=== PATIENT | male | born 1960 | race Hispanic/Latino ===

== ENCOUNTER 2018-03-31 10:15 | Day surgery (SDC) | payer MEDICAID ==
[~2018-03-31] VITALS: Ht 180.3 cm; Wt 73.7 kg
[2018-03-31] VITALS (13 sets, daily range): BP systolic 113–138; BP diastolic 60–75
[~2018-03-31 10:15] MED LIST: AMYL1CAP63 PO; OMEP40CA37 PO; SODIUM CHLORIDE 0.9% 1000ML 1,000 ML IV ONE
[2018-03-31] MEDS ORDERED: AMLO5TAB9 PO (11:20)
[2018-03-31] MEDS ORDERED: LISI10TA7 PO (11:20)
[2018-03-31] MEDS ORDERED: HYDR-4068 PO (11:20)
[2018-03-31] MEDS ORDERED: LEVO50TA11 PO (11:20)
[2018-03-31] MEDS ORDERED: METO25TA6 PO (11:20)
[2018-03-31] MEDS ORDERED: TRAM50TA4 PO (11:20)
[2018-03-31] MEDS ORDERED: PROPOFOL 10 MG/ML 20ML VIAL IV ONE ×2 (11:58→12:32)
[2018-03-31] MEDS ORDERED: FENTANYL CITRATE PF 50 MCG/1 ML 2ML VIAL ONE (11:58)
[2018-03-31] MEDS ORDERED: SUCCINYLCHOLINE CHLORIDE 20 MG/ML 10 ML VIAL ONE (11:59)
[2018-03-31] MEDS ORDERED: LEVOFLOXACIN 750 MG/D5W 150 ML 150 ML IV SCH (12:30)
== END 2018-03-31 14:40 | disposition home or self-care (01) ==
LOC: ENDO 10:15 → DAH 10:15 → ENDO 14:40
PROVIDERS: ATTEND Internal Medicine
DX: K86.2 Cyst of pancreas (principal); K31.89 Other diseases of stomach and duodenum; K86.1 Other chronic pancreatitis; I10 Essential (primary) hypertension; E03.9 Hypothyroidism, unspecified; Z98.890 Other specified postprocedural states; Z79.899 Other long term (current) drug therapy
CPT/HCPCS: 36415; 43238; 82150; 82378; A4215; A4606; J0330; J1956; J2704 ×2; J3010; J7030; 43232; 43240

== ENCOUNTER → 2018-04-04 | Outpatient (CLI) | payer MEDICAID ==
[~2018-04-04] MED LIST changes: +AMLO5TAB9 PO; +HYDR-4068 PO; +LEVO50TA11 PO; +LISI10TA7 PO; +METO25TA6 PO; -SODIUM CHLORIDE 0.9% 1000ML 1,000 ML IV ONE; +TRAM50TA4 PO
[2018-04-04 08:37] LABS: BASOPHILS % (AUTO) 0.3 % (0.0-5.0); EOSINOPHILS % (AUTO) 3.5 % (0.0-8.0); HEMATOCRIT 43.1 % (42-54); LYMPHOCYTES % (AUTO) 18.9 % (21.0-51.0); MEAN CORPUSCULAR HEMOGLOBIN 28.8 pg (27.0-33.0); MEAN CORPUSCULAR HGB CONC 32.5 g/dL (32.0-36.0); MEAN CORPUSCULAR VOLUME 88.7 fL (79-99); MONOCYTES % (AUTO) 8.9 % (3.0-13.0); NEUTROPHILS % (AUTO) 68.4 % (40.0-77.0); PLATELET COUNT (AUTO) 185 K/uL (130-400); RED BLOOD CELL COUNT(AUTO) 4.86 MIL/uL (4.50-6.20); RED CELL DISTRIBUTION WIDTH 14.3 % (11.0-15.5); WHITE BLOOD COUNT (AUTO) 8.8 K/uL (4.8-10.8)
[2018-04-04 08:49] LABS: ALBUMIN 3.2 g/dL (3.5-5.0); BILIRUBIN,TOTAL 0.4 mg/dL (0.2-1.0); CREATININE 0.9 mg/dL (0.5-1.5); POTASSIUM 4.8 mmol/L (3.5-5.1)
== END | disposition home or self-care (01) ==
LOC: RAH 04-03 11:08
PROVIDERS: ATTEND Internal Medicine Gastroenterology
DX: R93.3 Abnormal findings on diagnostic imaging of other parts of digestive tract (principal); K86.1 Other chronic pancreatitis; M47.815 Spondylosis without myelopathy or radiculopathy, thoracolumbar region
CPT/HCPCS: 36415; 74021; 80053; 83690; 85025

== ENCOUNTER → 2018-05-12 | Outpatient (CLI) | payer MEDICAID ==
[~2018-05-12] MED LIST changes: +IOHEXOL 350 MG/ML 100ML INFUS..BTL IV ONE
== END | disposition home or self-care (01) ==
LOC: RAH 09:46
PROVIDERS: ATTEND Internal Medicine Gastroenterology
DX: K86.1 Other chronic pancreatitis (principal); M48.07 Spinal stenosis, lumbosacral region; N28.1 Cyst of kidney, acquired
CPT/HCPCS: 74178; Q9967

== ENCOUNTER 2018-08-01 10:40 | Day surgery (SDC) | payer MEDICAID ==
[~2018-08-01] VITALS: Ht 175.3 cm; Wt 72.1 kg
[2018-08-01] VITALS (17 sets, daily range): BP systolic 108–125; BP diastolic 59–79
[~2018-08-01 10:40] MED LIST changes: -HYDR-4068 PO; -IOHEXOL 350 MG/ML 100ML INFUS..BTL IV ONE; +SODIUM CHLORIDE 0.9% 1000ML 1,000 ML IV ONE
[2018-08-01] MEDS ORDERED: IOHEXOL-350 50ML VIAL IV ONE (13:12)
[2018-08-01] MEDS ORDERED: PROPOFOL 10 MG/ML 20ML VIAL IV ONE ×2 (13:15→13:16)
[2018-08-01] MEDS ORDERED: SUCCINYLCHOLINE CHLORIDE 20 MG/ML 10 ML VIAL ONE (13:16)
[2018-08-01] MEDS ORDERED: GLUCAGON 1MG KIT 1 MG ML ONE (13:41)
== END 2018-08-01 16:07 | disposition home or self-care (01) ==
LOC: DAH 10:40 → ENDO 10:40
PROVIDERS: ATTEND Internal Medicine
DX: K86.89 Other specified diseases of pancreas (principal); K86.3 Pseudocyst of pancreas; I10 Essential (primary) hypertension; E03.9 Hypothyroidism, unspecified; Z79.899 Other long term (current) drug therapy; Z79.84 Long term (current) use of oral hypoglycemic drugs; Z88.8 Allergy status to other drugs, medicaments and biological substances; K21.9 Gastro-esophageal reflux disease without esophagitis
CPT/HCPCS: 43274; 74330; A4606; C1769; C2617; J0330; J1610; J2704 ×2; J7030; Q9967

== ENCOUNTER → 2018-08-02 | Outpatient (CLI) | payer MEDICAID ==
[~2018-08-02] MED LIST changes: -SODIUM CHLORIDE 0.9% 1000ML 1,000 ML IV ONE
== END | disposition home or self-care (01) ==
LOC: RAH 09:05
PROVIDERS: ATTEND Internal Medicine
DX: Z46.59 Encounter for fitting and adjustment of other gastrointestinal appliance and device (principal)
CPT/HCPCS: 74018

== ENCOUNTER → 2018-09-04 | Outpatient (CLI) | payer MEDICAID ==
[2018-09-04 12:38] LABS: CREATININE 0.9 mg/dL (0.5-1.5)
== END | disposition home or self-care (01) ==
LOC: LAB 11:19
PROVIDERS: ATTEND Internal Medicine Gastroenterology
DX: R93.3 Abnormal findings on diagnostic imaging of other parts of digestive tract (principal)
CPT/HCPCS: 36415; 82565; 84520

== ENCOUNTER → 2018-09-05 | Outpatient (CLI) | payer MEDICAID ==
[~2018-09-05] MED LIST changes: +IOHEXOL 350 MG/ML 100ML INFUS..BTL IV ONE
== END | disposition home or self-care (01) ==
LOC: OIH 08:31
PROVIDERS: ATTEND Internal Medicine Gastroenterology
DX: K76.0 Fatty (change of) liver, not elsewhere classified (principal); K86.2 Cyst of pancreas; N32.89 Other specified disorders of bladder; R19.09 Other intra-abdominal and pelvic swelling, mass and lump
CPT/HCPCS: 74178; Q9967

== ENCOUNTER 2018-09-19 08:45 | Day surgery (SDC) | payer MEDICAID ==
[~2018-09-19] VITALS: Ht 175.3 cm; Wt 72.6 kg
[2018-09-19] VITALS (18 sets, daily range): BP systolic 111–126; BP diastolic 59–76
[~2018-09-19 08:45] MED LIST changes: -IOHEXOL 350 MG/ML 100ML INFUS..BTL IV ONE; +SODIUM CHLORIDE 0.9% 1000ML 1,000 ML IV ONE
[2018-09-19] MEDS ORDERED: TYL3 PO (10:21)
[2018-09-19] MEDS ORDERED: IOHEXOL-350 50ML VIAL IV ONE (10:32)
[2018-09-19] MEDS ORDERED: SUCCINYLCHOLINE CHLORIDE 20 MG/ML 10 ML VIAL ONE (10:40)
[2018-09-19] MEDS ORDERED: GLYCOPYRROLATE 0.2 MG/ML 5 ML VIAL ONE (11:00)
--- NOTE | 2018-09-19 12:55 | NUR ---
NS 0.9% NS BAG OF 1000 ML STARTED AND GIVEN IN GI RECOVERY., PT AAOX3 IN NO DISTRESS. PATIENT DENIES [place] PAIN OR DISCOMFORT
== END 2018-09-19 13:10 | disposition home or self-care (01) ==
LOC: DAH 08:45 → ENDO 08:45
PROVIDERS: ATTEND Internal Medicine
DX: Z46.59 Encounter for fitting and adjustment of other gastrointestinal appliance and device (principal); K86.89 Other specified diseases of pancreas; Z79.82 Long term (current) use of aspirin
CPT/HCPCS: 43275; 74329; A4606; C1875; J0330; J3490; J7030; Q9967; 74330

== ENCOUNTER → 2018-12-18 | Outpatient (CLI) | payer MEDICAID ==
[~2018-12-18] MED LIST changes: -SODIUM CHLORIDE 0.9% 1000ML 1,000 ML IV ONE; +TYL3 PO
== END | disposition home or self-care (01) ==
LOC: RAH 08:43
PROVIDERS: ATTEND Family Medicine
DX: K86.3 Pseudocyst of pancreas (principal); K76.0 Fatty (change of) liver, not elsewhere classified
CPT/HCPCS: 76700

== ENCOUNTER → 2019-01-02 | Outpatient (CLI) | payer MEDICAID ==
[~2019-01-02] MED LIST changes: +OMEP40CA13 PO; -OMEP40CA37 PO
== END | disposition home or self-care (01) ==
LOC: LAB 07:45
PROVIDERS: ATTEND Internal Medicine Gastroenterology
DX: K86.2 Cyst of pancreas (principal)
CPT/HCPCS: 36415; 82565; 84520

== ENCOUNTER → 2019-01-22 | Outpatient (CLI) | payer MEDICAID ==
[~2019-01-22] MED LIST changes: +IOHEXOL-350 75 ML VIAL IV ONE
== END | disposition home or self-care (01) ==
LOC: RAH 07:37
PROVIDERS: ATTEND Internal Medicine Gastroenterology
DX: K86.2 Cyst of pancreas (principal); K76.0 Fatty (change of) liver, not elsewhere classified; K86.1 Other chronic pancreatitis; I70.0 Atherosclerosis of aorta
CPT/HCPCS: 74170; Q9967

== ENCOUNTER → 2019-08-09 | Outpatient (CLI) | payer MEDICAID ==
[~2019-08-09] MED LIST changes: -IOHEXOL-350 75 ML VIAL IV ONE
[2019-08-09 10:01] LABS: BASOPHILS % (AUTO) 0.7 % (0.0-5.0); EOSINOPHILS % (AUTO) 4.9 % (0.0-8.0); HEMATOCRIT 41.8 % (42-54); LYMPHOCYTES % (AUTO) 37.4 % (21.0-51.0); MEAN CORPUSCULAR HEMOGLOBIN 29.1 pg (27.0-33.0); MONOCYTES % (AUTO) 7.9 % (3.0-13.0); NEUTROPHILS % (AUTO) 48.4 % (40.0-77.0); PLATELET COUNT (AUTO) 184 K/uL (130-400); RED BLOOD CELL COUNT(AUTO) 4.75 MIL/uL (4.50-6.20); RED CELL DISTRIBUTION WIDTH 13.3 % (11.0-15.5); WHITE BLOOD COUNT (AUTO) 7.3 K/uL (4.8-10.8)
[2019-08-09 10:11] LABS: INR 0.92 (0.85-1.15); PARTIAL THROMBOPLASTIN TIME 24.9 SEC (26.3-35.5)
[2019-08-09 10:15] LABS: ALBUMIN 3.5 g/dL (3.5-5.0); BILIRUBIN,TOTAL 0.2 mg/dL (0.2-1.0); CREATININE 0.9 mg/dL (0.5-1.5); POTASSIUM 3.7 mmol/L (3.5-5.1); TOTAL PROTEIN, SERUM 7.4 g/dL (6.0-8.3)
== END | disposition home or self-care (01) ==
LOC: LAB 08:07
PROVIDERS: ATTEND Surgery
DX: K86.89 Other specified diseases of pancreas (principal)
CPT/HCPCS: 36415; 80053; 82105; 82378; 85025; 85610; 85730; 86316

== ENCOUNTER → 2019-08-24 | Outpatient (CLI) | payer MEDICAID ==
[~2019-08-24] MED LIST changes: +IOHEXOL 350 MG/ML 100ML INFUS..BTL IV ONE
== END | disposition home or self-care (01) ==
LOC: RAH 10:11
PROVIDERS: ATTEND Surgery
DX: K86.3 Pseudocyst of pancreas (principal); M47.816 Spondylosis without myelopathy or radiculopathy, lumbar region
CPT/HCPCS: 74178; Q9967

== ENCOUNTER 2019-09-02 | Emergency (ER) | payer MEDICAID | END 2019-09-03 01:38 | disposition home or self-care (01) | DX: R07.89 Other chest pain (principal); R31.9 Hematuria, unspecified; R10.9 Unspecified abdominal pain; E03.9 Hypothyroidism, unspecified; I10 Essential (primary) hypertension; Z88.2 Allergy status to sulfonamides; Z88.6 Allergy status to analgesic agent; Z88.8 Allergy status to other drugs, medicaments and biological substances; Z79.899 Other long term (current) drug therapy ==

== ENCOUNTER → 2020-01-04 | Outpatient (CLI) | payer MEDICAID ==
[~2020-01-04] MED LIST changes: +AMLO-257 PO; -AMLO5TAB9 PO; -IOHEXOL 350 MG/ML 100ML INFUS..BTL IV ONE
== END | disposition home or self-care (01) ==
LOC: RAH 09:45
PROVIDERS: ATTEND Family Medicine
DX: E03.9 Hypothyroidism, unspecified (principal)
CPT/HCPCS: 76536

== ENCOUNTER 2020-12-22 19:44 | Emergency (ER) | payer MEDICAID ==
[~2020-12-22] VITALS: Ht 175.3 cm; Wt 75.3 kg
[~2020-12-22 19:44] MED LIST changes: +LISI10TA24 PO; -LISI10TA7 PO; -OMEP40CA13 PO; +OMEP40CA21 PO
[2020-12-22 20:17] VITALS: BP 132/74
[2020-12-22] MEDS ORDERED: ONDANSETRON 4MG INJ IVP ONE (20:30)
[2020-12-22] MEDS ORDERED: 0.9%NACL 1000ML 1,000 ML IV ONE (20:30)
[2020-12-22] MEDS ORDERED: MORPHINE 4 MG SYG IVP ONE (20:30)
[2020-12-22] MEDS ORDERED: FAMOTIDINE 20MG VIAL IV ONE ×2 (20:30→22:40)
[2020-12-22 20:34] LABS: BASOPHILS % (AUTO) 0.5 % (0.0-5.0); EOSINOPHILS % (AUTO) 2.4 % (0.0-8.0); HEMATOCRIT 43.3 % (42-54); LYMPHOCYTES % (AUTO) 25.6 % (21.0-51.0); MEAN CORPUSCULAR HEMOGLOBIN 28.8 pg (27.0-33.0); MEAN CORPUSCULAR VOLUME 87.1 fL (79-99); MONOCYTES % (AUTO) 9.9 % (3.0-13.0); NEUTROPHILS % (AUTO) 61.1 % (40.0-77.0); PLATELET COUNT (AUTO) 162 K/uL (130-400); RED BLOOD CELL COUNT(AUTO) 4.97 MIL/uL (4.50-6.20); RED CELL DISTRIBUTION WIDTH 13.4 % (11.0-15.5); WHITE BLOOD COUNT (AUTO) 8.3 K/uL (4.8-10.8)
[2020-12-22] MEDS ORDERED: IOHEXOL-350 75 ML VIAL IV ONE (20:46)
[2020-12-22 20:49] LABS: POTASSIUM 3.7 mmol/L (3.5-5.1)
[2020-12-22 20:51] LABS: ALBUMIN 3.5 g/dL (3.5-5.0); BILIRUBIN,TOTAL 0.2 mg/dL (0.2-1.0); TOTAL PROTEIN, SERUM 7.9 g/dL (6.0-8.3)
[2020-12-22 21:25] LABS: APPEARANCE,URINE Clear (CLEAR); BILIRUBIN,URINE Negative (NEGATIVE); COLOR,URINE Yellow (YELLOW); GLUCOSE, URINE (UA) Negative (NEGATIVE); KETONES,URINE Negative (NEGATIVE); LEUKOCYTE ESTERASE ,URINE Negative (NEGATIVE); NITRATE,URINE Negative (NEGATIVE); OCCULT BLOOD,URINE Negative (NEGATIVE); PH,URINE 5.5 (5.0-8.0); PROTEIN,URINE Negative (NEGATIVE); UROBILINOGEN,URINE 0.2 mg/dL (0.2-1.0)
[2020-12-22] MEDS ORDERED: MORPHINE 4 MG SYG ONE (22:39)
[2020-12-22] MEDS ORDERED: ONDANSETRON 4MG INJ ONE (22:39)
[2020-12-22 23:00] VITALS: BP 133/74
[2020-12-23] MEDS ORDERED: ACET1TAB25 PO (00:43)
[2020-12-23 01:00] VITALS: BP 124/78
[2020-12-23] MEDS ORDERED: MORPHINE 2 MG SYG IVP ONE (01:00)
[2020-12-23] MEDS ORDERED: MORPHINE 2 MG SYG ONE (01:01)
== END 2020-12-23 01:31 | disposition home or self-care (01) ==
LOC: EDH 19:44
DX: K86.2 Cyst of pancreas (principal); E03.9 Hypothyroidism, unspecified; E78.00 Pure hypercholesterolemia, unspecified; I10 Essential (primary) hypertension; Z79.899 Other long term (current) drug therapy; Z88.2 Allergy status to sulfonamides; Z88.6 Allergy status to analgesic agent
CPT/HCPCS: 36415; 74177; 80053; 81003; 82150; 83690; 85025; 86677; 96361; 96374; 96375; 99285; J2270; J2405; J3490; J7030; S0028; Q9967

== ENCOUNTER 2020-12-25 17:16 | Emergency (ER) | payer MEDICAID ==
[~2020-12-25] VITALS: Ht 175.3 cm; Wt 72.6 kg
[~2020-12-25 17:16] MED LIST changes: +ACET1TAB25 PO
[2020-12-25 18:19] LABS: APPEARANCE,URINE CLEAR (CLEAR); BILIRUBIN,URINE NEGATIVE (NEGATIVE); COLOR,URINE YELLOW (YELLOW); GLUCOSE, URINE (UA) NEGATIVE (NEGATIVE); KETONES,URINE NEGATIVE (NEGATIVE); LEUKOCYTE ESTERASE ,URINE TRACE (NEGATIVE); NITRATE,URINE NEGATIVE (NEGATIVE); OCCULT BLOOD,URINE TRACE-INTACT (NEGATIVE); PH,URINE 5.5 (5.0-8.0); PROTEIN,URINE NEGATIVE (NEGATIVE); UROBILINOGEN,URINE 0.2 mg/dL (0.2-1.0)
[2020-12-25 18:25] LABS: BASOPHILS % (AUTO) 0.4 % (0.0-5.0); EOSINOPHILS % (AUTO) 1.7 % (0.0-8.0); LYMPHOCYTES % (AUTO) 23.3 % (21.0-51.0); MEAN CORPUSCULAR HEMOGLOBIN 29.7 pg (27.0-33.0); MEAN CORPUSCULAR VOLUME 87.4 fL (79-99); MONOCYTES % (AUTO) 9.3 % (3.0-13.0); NEUTROPHILS % (AUTO) 64.9 % (40.0-77.0); PLATELET COUNT (AUTO) 164 K/uL (130-400); RED BLOOD CELL COUNT(AUTO) 4.92 MIL/uL (4.50-6.20); RED CELL DISTRIBUTION WIDTH 13.2 % (11.0-15.5); WHITE BLOOD COUNT (AUTO) 8.4 K/uL (4.8-10.8)
[2020-12-25 18:38] LABS: BACTERIA,URINE Rare /HPF (None Seen); RBC,URINE 0-1 /HPF (0-1); SQUAMOUS EPITHELIAL CELL,UR Few /HPF (0-2)
[2020-12-25 18:40] LABS: CREATININE 1.1 mg/dL (0.5-1.5); POTASSIUM 3.7 mmol/L (3.5-5.1)
[2020-12-25 18:44] LABS: ALBUMIN 3.4 g/dL (3.5-5.0); BILIRUBIN,TOTAL 0.2 mg/dL (0.2-1.0); TOTAL PROTEIN, SERUM 7.9 g/dL (6.0-8.3)
[2020-12-25] MEDS: MORPHINE 4 MG SYG IM PRN ×2 (21:35→22:30)
[2020-12-25] MEDS ORDERED: MORPHINE 4 MG SYG IM ONE (22:00)
[2020-12-25 22:08] VITALS: BP 156/71
== END 2020-12-25 22:12 | disposition home or self-care (01) ==
LOC: EDH 17:16
DX: G89.18 Other acute postprocedural pain (principal); R10.31 Right lower quadrant pain; R10.32 Left lower quadrant pain; K86.2 Cyst of pancreas; E78.00 Pure hypercholesterolemia, unspecified; I10 Essential (primary) hypertension; E03.9 Hypothyroidism, unspecified; Z88.2 Allergy status to sulfonamides; Z88.8 Allergy status to other drugs, medicaments and biological substances; Z88.6 Allergy status to analgesic agent; Z79.899 Other long term (current) drug therapy
CPT/HCPCS: 36415; 74176; 80053; 81001; 82150; 82550; 83690; 84484; 85025; 93005 ×2; 96372; 99285; J2270 ×2

== ENCOUNTER 2022-11-07 19:37 | Emergency (ER) | payer MEDICAID ==
[~2022-11-07 19:37] MED LIST changes: +ACET-2079 PO; -ACET1TAB25 PO
== END 2022-11-08 00:57 | disposition home or self-care (01) ==
LOC: EDH 19:37
DX: R03.0 Elevated blood-pressure reading, without diagnosis of hypertension (principal); R51.9 Headache, unspecified
CPT/HCPCS: 70450; 71045; 93005

== ENCOUNTER 2023-04-08 08:14 | Emergency (ER) | payer OTHER, MEDICARE ==
[~2023-04-08] VITALS: Ht 175.3 cm; Wt 73.5 kg
[2023-04-08 08:15] VITALS: BP 170/99; PULSE 71; RESP 18
[2023-04-08] MEDS ORDERED: ACET-2893 PO (10:37)
== END 2023-04-08 10:44 | disposition home or self-care (01) ==
LOC: EDH 08:14
DX: M25.462 Effusion, left knee (principal); I10 Essential (primary) hypertension; E78.00 Pure hypercholesterolemia, unspecified; E03.9 Hypothyroidism, unspecified; R06.02 Shortness of breath; Z79.899 Other long term (current) drug therapy; Z98.890 Other specified postprocedural states; Z88.2 Allergy status to sulfonamides; Z88.6 Allergy status to analgesic agent; Z88.8 Allergy status to other drugs, medicaments and biological substances
CPT/HCPCS: 73560; 93971